=== PATIENT | male | born 2000 | race African-American/Black ===

== ENCOUNTER 2021-05-26 10:37 | Outpatient (CLI) | payer OTHER, SELFPAY ==
--- NOTE | 2021-05-26 11:30 | NEURO_ITS ---
Impression: # Complains of pain and numbness of left upper extremity. # No Carpal Tunnel Syndrome. # Left ulnar neuropathy across the elbow. # Abnormal needle/EMG exam in ulnar nerve distribution muscles. Nerve Conduction Studies Anti Sensory Summary Table Stim Site NR Peak (ms) P-T Amp (?V) Site1 Site2 Delta-P (ms) Dist (cm) Brandon (m/s) Left Median Anti Sensory (2-3nd Digit) Wrist 3.6 49.8 Wrist 2-3nd Digit 3.6 14.0 39 Wrist 3.7 73.7 Wrist 2-3nd Digit 3.6 14.0 39 Left Radial Anti Sensory (Base 1st Digit) Wrist 2.3 44.1 Wrist Base 1st Digit 2.3 0.0 Left Ulnar Anti Sensory (5th Digit) Wrist 3.7 18.3 Wrist 5th Digit 3.7 14.0 38 Motor Summary Table Stim Site NR Onset (ms) O-P Amp (mV) Site1 Site2 Delta-0 (ms) Dist (cm) Brandon (m/s) Left Median Motor (Abd Poll Brev) Wrist 3.7 6.9 Elbow Wrist 5.1 30.0 59 Elbow 8.8 6.2 Left Ulnar Motor (Abd Dig Minimi) Wrist 3.8 6.2 A Elbow Wrist 6.0 31.0 52 A Elbow 9.8 5.8 B Elbow Wrist 4.3 25.0 58 B Elbow 8.1 5.8 F Wave Studies NR F-Lat (ms) L-R F-Lat (ms) Left Median (Mrkrs) (Abd Poll Brev) 32.34 Left Ulnar (Mrkrs) (Abd Dig Min) 35.74 EMG Side Muscle Nerve Root Ins Act Fibs Amp Dur Recrt Comment Left 1stDorInt Ulnar C8-T1 Nml Nml Nml >12ms Reduced Left Ext Indicis Radial (Post Int) C7-8 Nml Nml Nml Nml Nml Left Ext Digitorum Radial (Post Int) C7-8 Nml Nml Nml Nml Nml Left BrachioRad Radial C5-6 Nml Nml Nml Nml Nml Left PronatorTeres Median C6-7 Nml Nml Nml Nml Nml Left Abd Poll Brev Median C8-T1 Nml Nml Nml Nml Nml Left ABD Dig Min Ulnar C8-T1 Nml Nml Nml >12ms Reduced Left Add Pollicis Ulnar C8-T1 Nml Nml Nml >12ms Reduced Left Abd Poll Long Radial (Post Int) C7-8 Nml Nml Nml Nml Nml MTDD
== END 2021-05-26 10:38 | disposition home or self-care (01) ==
PROVIDERS: PCP Student in an Organized Health Care Education/Training Program; Visit Provider Student in an Organized Health Care Education/Training Program
DX: M79.602 Pain in left arm (principal); R20.0 Anesthesia of skin; G56.22 Lesion of ulnar nerve, left upper limb; R94.131 Abnormal electromyogram [EMG]
CPT/HCPCS: 95886; 95909